=== PATIENT | male | born 1980 | race Hispanic/Latino ===

== ENCOUNTER 2019-03-01 23:47 | Emergency (ER) | payer BC ==
[~2019-03-01] VITALS: Ht 170.2 cm; Wt 104.5 kg
[2019-03-02] MEDS ORDERED: LABETALOL300 MG PO (00:43)
[2019-03-02] MEDS ORDERED: OLMESARTAN MEDO20 MG (00:43)
[2019-03-02] MEDS ORDERED: HYDROCHLOROT25 MG PO ×2 (00:44→00:46)
[2019-03-02] MEDS ORDERED: HYDRALAZINE25 MG PO (00:45)
[2019-03-02] MEDS ORDERED: AMOXICILLIN500 MG PO (01:09)
[2019-03-02 01:26] VITALS: BP 187/116
== END 2019-03-02 01:26 | disposition home or self-care (01) | DRG 153 ==
LOC: ED 23:47
DX: J02.9 Acute pharyngitis, unspecified (principal); R50.9 Fever, unspecified